=== PATIENT | female | born 1970 | race Caucasian/White ===

== ENCOUNTER 2016-10-27 11:30 | Emergency (ER) | payer OTHER ==
[2016-10-27 11:42] VITALS: BP 132/72; PULSE 121; TEMP 103; BMI 26.6
--- NOTE | 2016-10-27 13:42 | PDOC ---
History of Present Illness - General Chief Complaint: Cold Symptoms Stated Complaint: FEVER, CHILLS, BODY ACHES Time Seen by Provider: 10/27/16 11:58 History Source: Patient Exam Limitations: No Limitations, Language Barrier - History of Present Illness Initial Comments: 10/27/16 13:37 CC sore throat cough with fever; no NVD; with daughter who is translating Timing/Duration: reports: yesterday Severity: reports: mild Possible Cause: No: illness exposure, irritant gases exposure, occasional episodes, smoke exposure Modifying Factors: worse with: albuterol inhaler Associated Symptoms: reports: fever/chills, headache, nasal drainage, sore throat. denies: denies symptoms, wheezing Past History - Past Medical History Allergies/Adverse Reactions: Allergies Allergy/AdvReac Type Severity Reaction Status Date / Time No Known Allergies Allergy Verified 10/27/16 11:42 Home Medications: Ambulatory Orders NK [No Known Home Medication] 10/27/16 Asthma: No Cancer: No Cardiac Disorders: No Diabetes: No HTN: No Seizures: No Thyroid Disease: No Other medical history: DENIES - Surgical History Cholecystectomy: Yes - Psycho/Social/Smoking Cessation Hx Anxiety: No Suicidal Ideation: No Smoking Status: No Smoking History: Never smoked Have you smoked in the past 12 months: No Number of Cigarettes Smoked Daily: 0 Hx Alcohol Use: No Drug/Substance Use Hx: No Substance Use Type: None Hx Substance Use Treatment: No Review of Systems - Review of Systems Constitutional: Yes: Chills, Fever, Malaise HEENTM: Yes: Nose Congestion, Throat Pain, Throat Swelling Respiratory: No: Cough, Stridor, Wheezing Cardiac (ROS): No: Symptoms Reported ABD/GI: Yes: Vomiting. No: Symptoms Reported, Diarrhea, Nausea : Yes: Symptoms Reported. No: Dysuria, Discharge Musculoskeletal: No: Symptoms Reported, Gout Integumentary: No: Symptoms Reported Neurological: No: Symptoms reported, Numbness, Paresthesia, Tingling Psychiatric: No: Anxiety *Physical Exam - Vital Signs Last Vital Signs Temp Pulse Resp BP Pulse Ox 103.0 F H 121 H 20 132/72 95 10/27/16 11:39 10/27/16 11:39 10/27/16 11:39 10/27/16 11:39 10/27/16 11:39 - Physical Exam General Appearance: Yes: Appropriately Dressed. No: Apparent Distress HEENT: positive: TMs Normal, Tonsillar Exudate, Tonsillar Erythema, Nasal Congestion, Rhinorrhea. negative: Pharynx Normal Neck: positive: Supple, Lymphadenopathy (R), Lymphadenopathy (L). negative: Tender, Rigid Respiratory/Chest: positive: Lungs Clear, Normal Breath Sounds. negative: Stridor, Wheezing Cardiovascular: positive: Regular Rhythm, Regular Rate. negative: Murmur ED Treatment Course - ADDITIONAL ORDERS Additional order review: 10/27/16 12:10 Group A Strep Rapid Antigen - Final Throat - RADIOLOGY Radiology Studies Ordered: Category Date Time Status CHEST PA & LAT [RAD] Stat Radiology 10/27/16 12:11 Completed Medical Decision Making - Medical Decision Making 10/27/16 13:40 positive BHSGA; txed with pen VK *DC/Admit/Observation/Transfer Diagnosis at time of Disposition: Strep pharyngitis - Discharge Dispostion Disposition: HOME Condition at time of disposition: Stable Admit: No - Patient Instructions Additional Instructions: MOtrin for fever; lots of fluids; return for increased symptoms; see local MD 2 weeks for test of cure - Post Discharge Activity Work/School Note: Back to Work
== END 2016-10-27 13:47 | disposition home or self-care (01) ==
LOC: JERFT 11:30
DX: J02.0 Streptococcal pharyngitis (principal); B95.0 Streptococcus, group A, as the cause of diseases classified elsewhere
CPT/HCPCS: 71020-TC; 87070; 87077; 87430; 99281-25

== ENCOUNTER 2017-09-27 16:25 | Emergency (ER) | payer OTHER ==
[2017-09-27 17:11] VITALS: BP 129/74; PULSE 73; TEMP 98.1; BMI 34.7
--- NOTE | 2017-09-27 17:12 | PDOC ---
Rapid Medical Evaluation Time Seen by Provider: 09/27/17 16:46 Medical Evaluation: Allergies Allergy/AdvReac Type Severity Reaction Status Date / Time No Known Allergies Allergy Verified 10/27/16 11:42 09/27/17 17:05 I have performed a brief in-person evaluation of this patient. 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 Sister states that she lost consciousness for 5 minutes. Cough and cold since saturday, diarrhea, vomiting, was seen by the PMD told it was viral. Has been having left sided chest pain, arm pain and jaw pain since yesterday. Was given a pill for pain unknown name one hour prior to incident. Pertinent physical exam findings: Lung clear, HR regular. Diaphoretic + rhomberg. I have ordered the following: Influenza rapid, EKG, Magnesium, Pt/ Ptt, CBC, CMP , Cardiac enzymes, Chest PA/LAT. The patient will proceed to the ED for further evaluation. 09/27/17 17:12 09/27/17 17:14
[2017-09-27 17:37] LABS: BASO % 0.6 % (0-2.0); EOS # 0.1 #; EOS % 1.4 % (0-4.5); LYMPH # 2.6; MCH 28.9 pg (25.7-33.7); MCHC 33.3 g/dl (32.0-36.0); MEAN CELL VOLUME 86.8 fl (80-96); MEAN PLT VOLUME 8.5 fl (7.5-11.1); MONO # 0.5 #; NEUT # 4.5 #; NEUT % 57.8 % (42.8-82.8); PLATELET COUNT 284 K/MM3 (134-434); RDW 13.6 % (11.6-15.6); WHITE BLOOD COUNT 7.7 K/mm3 (4.0-10.0)
[2017-09-27 17:49] LABS: INR 0.94 (0.82-1.09); PROTHROMBIN TIME (PATIENT) 10.6 SEC (9.98-11.88)
[2017-09-27 18:19] LABS: ALBUMIN 3.6 g/dl (3.4-5.0); ANION GAP 6 (8-16); CALCIUM 8.7 mg/dL (8.5-10.1); CO2 27 mmol/L (21-32); CREATININE 0.8 mg/dL (0.55-1.02); GLUCOSE,RANDOM 98 mg/dL (74-106); MAGNESIUM 2.2 mg/dL (1.8-2.4); SGOT/AST 19 U/L (15-37); SGPT/ALT 46 U/L (12-78)
[2017-09-27 18:23] LABS: ALK PHOS 100 U/L (45-117); BILIRUBIN,TOTAL 0.2 mg/dL (0.2-1.0); CPK 91 IU/L (26-192); TOT PROT 7.9 g/dl (6.4-8.2); TROPONIN I < 0.02 ng/ml (0.00-0.05)
--- NOTE | 2017-09-27 19:47 | PDOC ---
History of Present Illness - General Chief Complaint: Syncope/Near Syncope Stated Complaint: FATIGUE Time Seen by Provider: 09/27/17 16:46 - History of Present Illness Initial Comments: 09/27/17 21:16 The patient is a 46 year old female with no significant PMH who presents for evaluation following a syncopal episode. The patient is accompanied by family who assist in providing the history. They report that the patient has been having a URI symptoms since Saturday that she was just getting over 1 day ago. However she reports feeling extremely lightheaded today at work and experienced a syncopal episode prompting her presentation to the ED today. She denies fevers, chills, SOB, chest pain, abdominal pain, or changes with urination or bowel movements. Past History - Past Medical History Allergies/Adverse Reactions: Allergies Allergy/AdvReac Type Severity Reaction Status Date / Time No Known Allergies Allergy Verified 09/27/17 17:07 Home Medications: Ambulatory Orders NK [No Known Home Medication] 09/27/17 Asthma: No Cancer: No Cardiac Disorders: No Diabetes: No HTN: No Seizures: No Thyroid Disease: No - Surgical History Cholecystectomy: Yes - Suicide/Smoking/Psychosocial Hx Smoking Status: No Smoking History: Never smoked Have you smoked in the past 12 months: No Number of Cigarettes Smoked Daily: 0 Hx Alcohol Use: No Drug/Substance Use Hx: No Substance Use Type: None Hx Substance Use Treatment: No Review of Systems - Review of Systems Comments:: 09/27/17 21:22 Constitutional: No fevers, chills, fatigue, malaise HEENT: No Rhinorrhea, nasal congestion, visual changes Cardiovascular: Syncope. No chest pain, palpitations, lightheadedness Respiratory: No Cough, SOB, Hemoptysis, Gastrointestinal: No Abdominal pain, Nausea, Vomiting, Constipation, Diarrhea, Melena Genitourinary: No Dysuria, Frequency, Urgency, Hesitancy, Hematuria, Flank pain Musculoskeletal: No Myalgia, arthralgia Skin: No rashes, itching, bruising, pallor Neurologic: No Headache, Dizziness, Numbness, Weakness, or Tingling Psychiatric: No Hallucinations. No SI or HI *Physical Exam - Vital Signs Last Vital Signs Temp Pulse Resp BP Pulse Ox 98.1 F 73 22 129/74 99 09/27/17 17:07 09/27/17 17:07 09/27/17 17:07 09/27/17 17:07 09/27/17 17:07 - Physical Exam Comments: 09/27/17 21:24 General Appearance: Nourished. No Apparent Distress HEENT: EOMI, JULIEN. No Pharyngeal Erythema, Tonsillar Exudate, Tonsillar Erythema Neck: No Cervical Lymphadenopathy Respiratory/Chest: Lungs Clear, Normal Breath Sounds. No Crackles, Rales, Rhonchi, Wheezing Cardiovascular: Regular Rhythm, Regular Rate. No Murmur, Gallops, Rubs Gastrointestinal/Abdominal: Normal Bowel Sounds, Soft. No Guarding, Rebound, Tenderness Musculoskeletal: No CVA Tenderness Extremity: Normal Capillary Refill Integumentary: Normal Color, Dry, Warm Neurologic: supervisor pressing department II-XII NML intact, Fully Oriented, Alert, Normal Mood/Affect, Normal Response, Motor Strength 5/5. Heart Score/ECG Review #1 ECG reviewed & interpreted by me at: 22:15 General ECG Interpretation: Sinus Rhythm, Normal Rate, Normal Intervals, No acute ischemic changes ED Treatment Course - LABORATORY CBC & Chemistry Diagram: 09/27/17 17:22 09/27/17 17:22 - ADDITIONAL ORDERS Additional order review: Laboratory Results 09/27/17 09/27/17 17:22 17:22 PT with INR 10.60 INR 0.94 Sodium 135 L Potassium 3.8 Chloride 102 Carbon Dioxide 27 Anion Gap 6 L BUN 12 Creatinine 0.8 D Creat Clearance w eGFR > 60 Random Glucose 98 Calcium 8.7 Magnesium 2.2 Total Bilirubin 0.2 D AST 19 D ALT 46 Alkaline Phosphatase 100 D Creatine Kinase 91 Troponin I < 0.02 Total Protein 7.9 Albumin 3.6 D 09/27/17 Unknown Influenza Types A,B Antigen ([place]) - Final Nasopharyngeal Swab - Final 09/27/17 17:22 RBC 4.28 MCV 86.8 MCHC 33.3 RDW 13.6 D MPV 8.5 Neutrophils % 57.8 Lymphocytes % 34.3 D Monocytes % 5.9 Eosinophils % 1.4 Basophils % 0.6 Medical Decision Making - Medical Decision Making 09/27/17 21:25 The patient is a 46 year old female with no significant PMH who presents for evaluation following a syncopal episode. Differential includes but is not limited to: ACS, arrhythmia, dehydration, intracranial process, infectious, metabolic derangement. Given the patient's normal physical exam, it is likely her syncopal episode was idiopathic in nature or vaso-vagal, however we will obtain a cbc, cmp, troponin, EKG, chest plain film and head CT evaluate for other etiologies. We will continue to monitor and reassess. 09/27/17 22:33 CBC, cmp, troponin, EKG were unremarkable. Chest plain film was unremarkable. Head CT was negative as preliminarily read by the roofing contractor radiologist pending official radiology read. We are comfortable discharging the patient home at this time with primary care provider follow up. We discussed the results and the plan with the patient who voiced understanding and is agreeable with the plan. *DC/Admit/Observation/Transfer Diagnosis at time of Disposition: Syncope Qualifiers: Syncope type: vasovagal syncope Qualified Code(s): R55 - Syncope and collapse - Discharge Dispostion Disposition: HOME Condition at time of disposition: Improved Admit: No - Referrals Referrals: Tasha Duque MD [Primary Care Provider] - - Patient Instructions Printed Discharge Instructions: DI for Syncope in Adults (Fainting) Additional Instructions: Please return to the ER if you experience concerning or worsening symptoms including chest pain, difficulty breathing or fevers. You were seen in the ER for fainting. Your lab results, x-rays, and ct scan were normal here in the ER. It is important that you call to schedule a follow up appointment with your primary care provider to discuss your ER visit within 1 week. - Post Discharge Activity Forms/Work/School Notes: Back to Work
--- NOTE | 2017-09-27 19:59 | PDOC ---
Attending Attestation - Resident Resident Name: Jad Langford - ED Attending Attestation I have performed the following: I have examined & evaluated the patient, The case was reviewed & discussed with the resident, I agree w/resident's findings & plan - HPI HPI: 09/27/17 19:59 Pt had a syncopal episode at work and she was out for 5 min as per colleagues. 09/27/17 22:38 Pt states that she bent over the garbage and passed out. She had been earlier in the week to see her PMD for viral illness. She was not hydrated or given meds. She has been taking OTC antipyretics. Her colleague gave her a pill and after taking it she fell out. Unclear what the pill was. Pt has no allergic rash or SOB or difficulty breathing. - Physicial Exam PE: 09/27/17 22:40 Exam is normal. Pt has no fever or chills. Neuro exam normal. CN 2-12 intact. Pt has normal reflexes throughout. - Medical Decision Making 09/27/17 22:25 Patient Name: JORGE LUIS WILSNO PRELIMINARY REPORT FROM IMAGING STEREOPTICIAN EXAM: CT brain without contrast HISTORY: syncope IMAGES: 132 EXAM DATE AND TIME: 2017-09-27 20:55:29 . FINDINGS : . No acute findings. . No mass effect, hemorrhage, territorial infarct, hydrocephalus or fracture. THIS DOCUMENT HAS BEEN ELECTRONICALLY HEATHER 09/27/17 22:40 Pt's labs are normal. Pt's vitals are normal. She will be referred back to her PMD and she may return for worsening symptoms. 09/27/17 22:42 CXR normal; EKG NSR
--- NOTE | 2017-09-28 11:05 | EKG ---
Test Reason : Blood Pressure : / mmHG Vent. Rate : 067 BPM Atrial Rate : 067 BPM P-R Int : 134 ms QRS Dur : 076 ms QT Int : 396 ms P-R-T Axes : 057 035 047 degrees QTc Int : 418 ms NORMAL SINUS RHYTHM LOW VOLTAGE QRS NONSPECIFIC T WAVE ABNORMALITY BORDERLINE ECG WHEN COMPARED WITH ECG OF 05-FEB-2013 15:32, NONSPECIFIC T WAVE ABNORMALITY NOW EVIDENT IN ANTERIOR LEADS CLINICAL CORRELATION IS RECOMMENDED Confirmed by LYNDON MENDIETA, TL ([id number] on 09/28/2017 11:04:57 AM Referred By: Confirmed By:TL HANEY MD
== END 2017-09-27 23:28 | disposition home or self-care (01) ==
LOC: JER 16:25
DX: R55 Syncope and collapse (principal)
CPT/HCPCS: 36415; 70450-TC; 71020-TC; 80053; 82550; 83735; 84484; 84703; 85025; 85610; 87804; 93005; 93010; 99284-25